=== PATIENT | male | born 1990 | race African-American/Black ===

== ENCOUNTER 2016-10-05 11:06 | Emergency (ER) | payer OTHER ==
[~2016-10-05] VITALS: Ht 185.4 cm; Wt 104.3 kg
[2016-10-05] MEDS ORDERED: AZITHROMYCIN 2250 MG PO (11:52)
[2016-10-05] MEDS ORDERED: NORCO 5-325 TA1 EACH PO (11:52)
[2016-10-05] MEDS ORDERED: ROBITUSSIN DM118 ML PO (11:52)
[2016-10-05] MEDS ORDERED: IBUPROFEN 600600 M1 PO (11:52)
[2016-10-05 12:11] VITALS: BP 156/91
== END 2016-10-05 12:12 | disposition home or self-care (01) ==
LOC: ER 11:06
DX: J45.909 Unspecified asthma, uncomplicated (principal); Z87.891 Personal history of nicotine dependence

== ENCOUNTER 2017-06-13 10:09 | Emergency (ER) | payer OTHER ==
[~2017-06-13] VITALS: Ht 185.4 cm; Wt 108.9 kg
[~2017-06-13 10:09] MED LIST: AZITHROMYCIN 2250 MG PO; IBUPROFEN 600600 M1 PO; NORCO 5-325 TA1 EACH PO; ROBITUSSIN DM118 ML PO
[2017-06-13 10:10] VITALS: BP 162/119
[2017-06-13] MEDS ORDERED: NORCO 5-325 TA1 EACH PO (10:37)
== END 2017-06-13 11:20 | disposition home or self-care (01) ==
LOC: ER 10:09
DX: S29.012A Strain of muscle and tendon of back wall of thorax, initial encounter (principal); J45.909 Unspecified asthma, uncomplicated; I10 Essential (primary) hypertension; Z87.891 Personal history of nicotine dependence; V89.2XXA Person injured in unspecified motor-vehicle accident, traffic, initial encounter; Y93.89 Activity, other specified; Y92.410 Unspecified street and highway as the place of occurrence of the external cause; Y99.8 Other external cause status